=== PATIENT | male | born 1965 | race Caucasian/White ===

== ENCOUNTER 2021-12-16 09:37 | Emergency (ER) | payer SELFPAY ==
[~2021-12-16] VITALS: Ht 172 cm; Wt 77.0 kg
[2021-12-16 09:40] VITALS: BP 176/113
--- NOTE | 2021-12-16 10:03 | ED Fall/Injury ---
General Chief Complaint: Trauma-Non Activation Stated Complaint: FALL; BROW LAC Nursing Triage Note: ARRIVED VIA AMB TO ROOM FS05. STATES HE TRIPPED FALLING DOWN X1 STAIR CAUSING A LACERATION TO HIS RIGHT EYEBROW. DENIES LOC, NECK PAIN, OR BEING ON BLOOD THINNERS. Source: patient Exam Limitations: no limitations History of Present Illness Date Seen by Provider: Dec 16, 2021 Time Seen by Provider: 09:39 Initial Comments 56-year-old male presenting with complaints of laceration to his right eyebrow and abrasions to his right hand after falling at his sister's house. He had tripped on the last stair step and fell forward onto the patio. He denies losing consciousness. He also states he is not taking any blood thinners. He does have high blood pressure and takes medication for that. He denies any acute change in his vision. He has no nausea, vomiting, neck pain, chest pain, abdominal pain. He denies any other injuries. He believes it has been more than 5 years since his last tetanus shot but states he does not want a booster. Bleeding is controlled on arrival to the ED. Location Injury Occurred: His sister's house Occurred: just prior to arrival Severity: mild Injuries/Pain Location: face (Right eyebrow), upper extremity (Right hand) Context: tripped (His foot caught on the last step going down the stairs) Loss of Consciousness: no loss of consciousness Modifying Factors: Worse With Movement Associated Symptoms (Fall): No Abdominal Pain, No Chest Pain, No Confusion, No Dizziness, No Headache, No Lightheadedness, No Muscle Spasms, No Nausea/Vomiting, No Neck Pain, No Ringing in Ears, No Seizures, No Shortness of Air, No Slurred Speech, No Trouble Walking, No Vision Changes Allergies and Home Medications Allergies Coded Allergies: No Known Drug Allergies (Unverified , 12/16/21) Patient Home Medication List Home Medication List Reviewed: Yes Review of Systems Review of Systems Constitutional: No chills, No fever Eyes: Denies Blurred Vision, Denies Photophobia, Denies Vision Changes Ears, Nose, Mouth, Throat: denies ear pain, denies ear discharge, denies nose pain, denies nose discharge, denies epistaxis, denies mouth swelling Respiratory: No cough, No short of breath Cardiovascular: No chest pain, No edema, No palpitations Gastrointestinal: No nausea, No vomiting Genitourinary: No dysuria Musculoskeletal: no symptoms reported Skin: see HPI Psychiatric/Neurological: Denies Headache, Denies Seizure Past Smclcdz-Gtstwa-Ixfmhr Hx Patient Social History Tobacco Use?: No Substance use?: No Alcohol Use?: No Past Medical History Surgery/Hospitalization HX: hypertension Physical Exam Vital Signs Vital Signs - First Documented 12/16/21 09:40 Temp 36.0 Pulse 89 Resp 16 B/P (MAP) 176/113 (134) Pulse Ox 98 O2 Delivery Room Air Capillary Refill : Less Than 3 Seconds Height, Weight, BMI Height: '" Weight: lbs. oz. kg; 26.00 BMI Method: General Appearance: WD/WN, no apparent distress HEENT: PERRL/EOMI, TMs normal, pharynx normal, other (Negative aldridge sign, negative raccoon sign, no CSF otorrhea, no CSF rhinorrhea. 2.2 cm laceration right lateral eyebrow) Neck: non-tender, full range of motion, supple, normal inspection Cardiovascular: normal peripheral pulses, regular rate, rhythm Respiratory: chest non-tender, lungs clear, normal breath sounds, no respiratory distress, no accessory muscle use Gastrointestinal: normal bowel sounds, non tender, soft, no pulsatile mass Extremities: normal range of motion, normal capillary refill, other (Superficial abrasions to the right hand along the fifth metacarpal) Neurologic/Psychiatric: tentmaker II-XII nml as tested, no motor/sensory deficits, alert, normal mood/affect, oriented x 3 Skin: warm/dry, other (2.2 cm laceration to the right lateral eyebrow. Superficial abrasions to the right hand over the fifth metacarpal) Anthony Coma Score Best Eye Response: (4) Open Spontaneously Best Verbal Response: (5) Oriented Best Motor Response: (6) Obeys Commands [place] Total: 15 Procedures/Interventions Wound Location: Face (Right lateral eyebrow) Wound Length (cm): 2.2 Wound's Depth, Shape: contused tissue, sub Q Wound Explored: clean Other Closure Supply: Wound Adhesive Progress After obtaining verbal informed consent from the patient the wound was cleaned with chlorhexidine soap. Then using tissue adhesive the wound edges were approximated. Patient was counseled on follow-up and return precautions. Advised on management of wound sealed with tissue adhesive. Progress/Results/Core Measures Results/Orders Vital Signs/I&O 12/16/21 09:40 Temp 36.0 Pulse 89 Resp 16 B/P (MAP) 176/113 (134) Pulse Ox 98 O2 Delivery Room Air Progress Progress Note : Progress Note Eyebrow laceration was sealed with tissue adhesive. Counseled on follow-up and return precautions. Patient refused tetanus booster here and advised to consider getting it within the next 72 hours through his primary care provider at [place]. His blood pressure is elevated here in the ED but patient denies any symptoms of elevated blood pressure. Some of this may be reactive to the fall with as well as being seen in the emergency department. Counseled to follow-up with his clinic and if he continues to have high blood pressure they may need to adjust his medications. Departure Impression Primary Impression: Laceration of right eyebrow without complication Qualified Codes: S01.111A - Laceration without foreign body of right eyelid and periocular area, initial encounter Additional Impressions: Abrasion of multiple sites of right hand and finger Qualified Codes: S60.511A - Abrasion of right hand, initial encounter; S60.419A - Abrasion of unspecified finger, initial encounter Fall (on) (from) other stairs and steps, initial encounter Elevated blood pressure reading with diagnosis of hypertension Disposition: 01 HOME, SELF-CARE Condition: Stable Departure-Patient Inst. Decision time for Depature: 09:58 Referrals: NO,LOCAL PHYSICIAN (PCP/Family) Primary Care Physician Patient Instructions: Laceration Repair With Glue ED, Abrasions ED Add. Discharge Instructions: Keep wound on face clean and dry for next 4-6 hours. Then you may wash it with soap and water as needed. Avoid soaking the wound in water. Do NOT apply any antibiotic ointment or lotions to the glue or it will come off too soon. The glue will come off on its own over the next 5 to 7 days. Try to keep your head elevated at least 30-45 degrees, even when you go to bed. Do this over the next 2-3 days and it will help limit the bruising and swelling to the wound. You may also apply an ice pack for 15-20 minutes every few hours as needed for pain, swelling and bruising Keep abrasions on hand clean with soap and water and may apply antibiotic ointment 2-3 times a day as needed for helping them heal and preventing infection. Follow up with clinic about your blood pressure to make sure that it is not running high all the time or that you need adjustment to your medications. Consider updating your Tetanus booster with the clinic within the next 72 hours since you had cuts/abrasions on your hand and face. All discharge instructions reviewed with patient and/or family. Voiced understanding. Images Head/Face 1 - Contusion, Laceration (2.2 cm laceration to the right lateral eyebrow), Tenderness (Mild tenderness to palpation) STIVEN MONTEMAYOR MD Dec 16, 2021 10:03
== END 2021-12-16 10:08 | disposition home or self-care (01) ==
LOC: ER FS 09:40
DX: S01.111A Laceration without foreign body of right eyelid and periocular area, initial encounter (principal); S60.511A Abrasion of right hand, initial encounter; I10 Essential (primary) hypertension; Z79.899 Other long term (current) drug therapy; W10.9XXA Fall (on) (from) unspecified stairs and steps, initial encounter; Y92.009 Unspecified place in unspecified non-institutional (private) residence as the place of occurrence of the external cause
CPT/HCPCS: 12001